=== PATIENT | female | born 2005 | race Caucasian/White ===

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

== ENCOUNTER → 2024-03-10 15:56 | Outpatient (BNVA) | payer MEDICAID, SELFPAY | PROVIDERS: PCP Nurse Practitioner; Visit Provider Nurse Practitioner Women's Health | DX: R00.2 Palpitations (principal) | CPT/HCPCS: 83036; 84439; 84443; 85025 ==

== ENCOUNTER 2025-06-24 16:57 | Emergency (ER) | payer MEDICAID, SELFPAY ==
[2025-06-24 17:18] VITALS: BP 155/91; PULSE 115; RESP 18; TEMP 37; O2SAT 100; BMI 18.5
--- NOTE | 2025-06-24 17:32 | ED_ITS ---
Documented by User: Nghia Matt DO 06/28/25 07:13 HPI - 2 General: Chief complaint: Vaginal Bleeding Stated complaint: 6 wk preg-spotting, cramping Time Seen by Provider: 06/24/25 17:13 History of Present Illness: 19-year-old G3, P1 SAB 1 female presents emergency room at 6 weeks gestation based off a LMP of 05/10/2025. She has had some spotting when she wipes after urinating today. She also reports having been somewhat constipated. She denies any discharge frequency no fevers or chills or flank pain. Some mild pelvic cramping Associated symptoms: Deny abdominal pain or dysuria Related Data Home Medications ?Medication ?Instructions ?Recorded ?Confirmed etonogestrel 68 mg subdermal subdermal 03/08/23 implant (Nexplanon) cholecalciferol (vitamin D3) 50 05/11/23 07/29/24 mcg (2,000 unit) capsule Previous Rx's ?Medication ?Instructions ?Recorded ibuprofen 800 mg tablet 800 mg PO TID PRN pain #60 t abs 01/26/23 azithromycin 500 mg tablet 500 mg PO DAILY 5 days #3 t abs 10/23/24 Allergies Allergy/AdvReac Type Severity Reaction Status Date / Time Sulfa (Sulfonamide Allergy Unknown Verified 07/29/24 13:38 Antibiotics) Review of Systems 2 Const: Denies: fever(s) or chills Card: Denies: chest pain Resp: Denies: dyspnea GI: Denies: abdominal pain : Reports: vaginal bleeding (Light spotting); Denies: dysuria, urinary frequency or urinary urgency Musc: Denies: neck pain or back pain Skin/Breast: Denies: rash PFSH ED 2 PFSH: Medical History No pertinent past medical history neghx: htn,dm,thyroid,dvt/pe PCP: Alessandra Frankel Labia minora hypertrophy Ineffective individual coping Surgical History No pertinent past surgical history Family History Mother Scoliosis Other Asthma Denies family history of Colon cancer Ovarian cancer Diabetes Heart disease Hyperlipidemia Breast cancer Family history of thyroid problem Hypertension Uterine cancer Stroke Social History Smoking and tobacco/nicotine status: current every day tobacco/nicotine user Physical Exam 2 Const: GENERAL APPEARANCE: cooperative ORIENTATION/CONSCIOUSNESS: Yes awake, Yes oriented to person, Yes oriented to place and Yes oriented to time HENMT: COMMON NORMALS: normocephalic, atraumatic and hearing grossly normal bilaterally HEAD & SCALP: normocephalic and atraumatic Resp: COMMON NORMALS: normal respiratory effort, No retractions, No use of accessory muscles and clear to auscultation bilaterally AUSCULTATION: clear to auscultation bilaterally Cardio: COMMON NORMALS: regular rate, regular rhythm and No murmurs present (Cardio) RATE: regular rate RHYTHM: regular rhythm GI: COMMON NORMALS: Soft to palpation and No hepatosplenomegaly present A USCULTATION: Yes normoactive bowel sounds PALPATION: Yes Soft to palpation, No Tenderness to palpation present (GI), No Guarding due to palpation present (GI) and Yes No hepatosplenomegaly present Extremity: COMMON NORMALS: normal to inspection, capillary refill normal, no clubbing, cyanosis or edema, no calf tenderness and no pedal edema Neuro: SENSORIUM/ORIENTATION: Yes oriented to person, Yes oriented to place and Yes oriented to time Skin: COMMON NORMALS: no rashes or lesions noted GENERAL SKIN EXAM: no rashes or lesions noted Course 2 Vital Signs: Vital signs: Vital Signs Temperature 98.6 F 06/24/25 17:18 Pulse Rate 104 H 06/24/25 18:00 Respiratory Rate 16 06/24/25 18:00 Blood Pressure 118/88 06/24/25 18:00 Pulse Oximetry 100 06/24/25 18:00 Oxygen Delivery Me thod Room Air 06/24/25 18:00 MDM - OB/Uterine Contractions Medical Decision Making Care signed out to Dr. Fan at change of shift. See final notes for diagnosis and disposition. 19-year-old female G3, P1 with 1 spontaneous in the past and 1 live child presenting emergency department with vaginal bleeding and pelvic cramping at 6 weeks EGA by dates, no confirmatory ultrasound as of yet, Rh+ on blood work, plan for quant hCG, pelvic ultrasound to evaluate for IUP and early signs of ectopic , reassess for disposition. Lab Data 06/24/25 17:31 06/24/25 17:31 Radiology Impressions Ultrasound 06/24/25 18:48 IMPRESSION: Early intrauterine , pole not seen. Gestational age 5 weeks 5 days. Continued ultrasound surveillance. Laboratory Results WBC 7.56 10^3/uL (4.5-13.0) 06/24/25 17: RBC 4.87 10^6/uL (3.85-5.65) 06/24/25 17: Hgb 14.70 g/dL (12.4-14.8) 06/24/25 17: Hct 41.7 % (36-47) 06/24/25 17: MCV 85.6 fl (85-98) 06/24/25 17: MCH 30.2 pg (27-33) 06/24/25 17: MCHC 35.3 g/dL (30-55) 06/24/25 17: RDW 12.0 % (12.1-15.1) L 06/24/25 17: Plt Count 367 10^3/cmm (157-399) 06/24/25 17: MPV 9.7 fL (7.4-10.4) 06/24/25 17: Neut % (Auto) 68.0 % 06/24/25 17: Lymph % (Auto) 25.8 % 06/24/25 17: [place] % (Auto) 5.4 % 06/24/25 17: Eos % (Auto) 0.3 % 06/24/25 17: Baso % (Auto) 0.4 % 06/24/25 17: Neut # (Auto) 5.14 10^3/uL (1.8-8.0) 06/24/25 17: Lymph # (Auto) 2.0 10^3/uL (1.5-6.5) 06/24/25 17: [place] # (Auto) 0.4 10^3/uL (0.2-0.9) 06/24/25 17:31 Eos # (Auto) 0.0 10^3/uL (0.0-0.8) 06/24/25 17: Baso # (Auto) 0.0 10^3/uL (0.0-0.1) 06/24/25 17:31 Nucleated RBC % (auto) 0 % 06/24/25 17: Nucleated RBCs # 0.0 /100WBC 06/24/25 17:31 Sodium 139 mmol/L (136-145) 06/24/25 17:31 Potassium 3.4 mmol/L (3.5-5.1) L 06/24/25 17:31 Chloride 102 mmol/L (98-107) 06/24/25 17:31 Carbon Dioxide 21 mmol/L (22-29) L 06/24/25 17:31 Anion Gap 19.4 (5-19) H 06/24/25 17:31 BUN 14 mg/dL (6-20) 06/24/25 17:31 Creatinine 0.5 mg/dL (0.5-0.9) 06/24/25 17:31 GFR Calculation 157.3 mL/min (90-130) H 06/24/25 17:31 Glucose 125 mg/dL (65-115) H 06/24/25 17:31 Calculated Osmolality 290 mOsm/kg (285-295) 06/24/25 17:31 Calcium 10.0 mg/dL (8.5-10.5) 06/24/25 17:31 Total Bilirubin 1.1 mg/dL (0.15-1.2) 06/24/25 17:31 AST 22 U/L (0-32) 06/24/25 17:31 ALT 18 U/L (0-33) 06/24/25 17:31 Alkaline Phosphatase 81 U/L (35-105) 06/24/25 17:31 Total Protein 8.6 g/dL (6.6-8.7) 06/24/25 17:31 Albumin 5.3 g/dL (3.5-5.2) H 06/24/25 17:31 Globulin 3.3 g/dL (1.3-4.6) 06/24/25 17:31 Ser , Semi-Qnt 42491.00 mIU/mL 06/24/25 17:31 Urine Color Yellow (Yellow) 06/24/25 18:37 Urine Appearance Cloudy (CLEAR) A 06/24/25 18:37 Urine pH 6.5 (5-7) 06/24/25 18:37 Ur Specific [place] 1.018 (1.005-1.030) 06/24/25 18:37 Urine Protein Negative (Negative) 06/24/25 18:37 Urine Glucose (UA) Negative (Normal) 06/24/25 18:37 Urine Ketones 1+ (Negative) H 06/24/25 18:37 Urine Blood Negative (Negative) 06/24/25 18:37 Urine Nitrate Negative (Negative) 06/24/25 18:37 Urine Bilirubin Negative (Negative) 06/24/25 18:37 Urine Urobilinogen 1.0 mg/dL (Negative) 06/24/25 18:37 Ur Leukocyte Esterase Negative (Negative) 06/24/25 18:37 Urine RBC 0-2 /hpf (0-2) 06/24/25 18:37 Urine WBC 0-5 /hpf (0-5) 06/24/25 18:37 Ur Squamous Epith Cells 0-5 /hpf (0-5) 06/24/25 18:37 Amorphous Sediment Not Reportable 06/24/25 18:37 Urine Bacteria None seen /hpf (NONE) 06/24/25 18:37 Hyaline Casts 0-4 /lpf H 06/24/25 18:37 Rho(D) Type Rh positive 06/24/25 17:31 Discharge Plan Discharge Patient Disposition: Home Clinical Impression: Threatened , Vaginal bleeding in patient after first trimester, Confirmed intrauterine on ultrasound Condition: Stable Prescriptions: No Action Nexplanon 68 mg implant subdermal azithromycin 500 mg tablet 500 mg PO DAILY 5 Days Qty: 3 0RF Rx Instructions: 1 tab by mouth daily x 3 days ibuprofen 800 mg tablet 800 mg PO TID PRN (Reason: pain) Qty: 60 0RF cholecalciferol (vitamin D3) 50 mcg (2,000 unit) capsule Discharge Orders: Discharge ED (Routine); Ordered 06/24/25 Ordered By: Liban Fan Referrals: Maria Alejandra Frankel FNP-BC [Primary Care Provider, Pediatrics] Patient Instructions: Threatened Miscarriage (ED), (ED), Patient Portal & [facility] Instructions Print Language: Ivorian Coding Level of Care Code ED Digital Sales Planner for [employer] Documented by User: Liban Fan MD 06/24/25 20:13 HPI - 2 General: Chief complaint: Vaginal Bleeding Stated complaint: 6 wk preg-spotting, cramping Time Seen by Provider: 06/24/25 17:13 Related Data Home Medications ?Medication ?Instructions ?Recorded ?Confirmed etonogestrel 68 mg subdermal subdermal 03/08/23 implant (Nexplanon) cholecalciferol (vitamin D3) 50 05/11/23 07/29/24 mcg (2,000 unit) capsule Previous Rx's ?Medication ?Instructions ?Recorded ibuprofen 800 mg tablet 800 mg PO TID PRN pain #60 t abs 01/26/23 azithromycin 500 mg tablet 500 mg PO DAILY 5 days #3 t abs 10/23/24 Allergies Allergy/AdvReac Type Severity Reaction Status Date / Time Sulfa (Sulfonamide Allergy Unknown Verified 07/29/24 13:38 Antibiotics) PFSH ED 2 PFSH: Medical History No pertinent past medical history neghx: htn,dm,thyroid,dvt/pe PCP: Alessandra Frankel Labia minora hypertrophy Ineffective individual coping Surgical History No pertinent past surgical history Family History Mother Scoliosis Other Asthma Denies family history of Colon cancer Ovarian cancer Diabetes Heart disease Hyperlipidemia Breast cancer Family history of thyroid problem Hypertension Uterine cancer Stroke Social History Smoking and tobacco/nicotine status: current every day tobacco/nicotine user Course 2 Reevaluation(s): Reevaluation #1: Patient reevaluated this time, feels well, no active hemorrhage, workup showing ultrasound with positive gestational sac and yolk sac correlating to an intrauterine at approximately 5 weeks gestation, beta-hCG 11,000, no UTI, Rh+ no indication for RhoGAM, stable for discharge with diagnosis of threatened miscarriage/first trimester vaginal bleeding, follow-up with [facility] [employer] [employer] recommended, return precautions discussed Time: 20:11 Vital Signs: Vital signs: Vital Signs Temperature 98.6 F 06/24/25 17:18 Pulse Rate 104 H 06/24/25 18:00 Respiratory Rate 16 06/24/25 18:00 Blood Pressure 118/88 06/24/25 18:00 Pulse Oximetry 100 06/24/25 18:00 Oxygen Delivery Me thod Room Air 06/24/25 18:00 MDM - OB/Uterine Contractions Medical Decision Making 19-year-old female G3, P1 with 1 spontaneous in the past and 1 live child presenting emergency department with vaginal bleeding and pelvic cramping at 6 weeks EGA by dates, no confirmatory ultrasound as of yet, Rh+ on blood work, plan for quant hCG, pelvic ultrasound to evaluate for IUP and early signs of ectopic , reassess for disposition. Lab Data Labs showing no leukocytosis or anemia, beta-hCG 11,000, urinalysis negative for UTI 06/24/25 17:31 06/24/25 17:31 Radiology Impressions Ultrasound 06/24/25 18:48 IMPRESSION: Early intrauterine , pole not seen. Gestational age 5 weeks 5 days. Continued ultrasound surveillance. Laboratory Results WBC 7.56 10^3/uL (4.5-13.0) 06/24/25 17: RBC 4.87 10^6/uL (3.85-5.65) 06/24/25 17:31 Hgb 14.70 g/dL (12.4-14.8) 06/24/25 17: Hct 41.7 % (36-47) 06/24/25 17: MCV 85.6 fl (85-98) 06/24/25 17:31 MCH 30.2 pg (27-33) 06/24/25 17: MCHC 35.3 g/dL (30-55) 06/24/25 17: RDW 12.0 % (12.1-15.1) L 06/24/25 17: Plt Count 367 10^3/cmm (157-399) 06/24/25 17: MPV 9.7 fL (7.4-10.4) 06/24/25 17: Neut % (Auto) 68.0 % 06/24/25 17:31 Lymph % (Auto) 25.8 % 06/24/25 17:31 [place] % (Auto) 5.4 % 06/24/25 17:31 Eos % (Auto) 0.3 % 06/24/25 17:31 Baso % (Auto) 0.4 % 06/24/25 17:31 Neut # (Auto) 5.14 10^3/uL (1.8-8.0) 06/24/25 17: Lymph # (Auto) 2.0 10^3/uL (1.5-6.5) 06/24/25 17:31 [place] # (Auto) 0.4 10^3/uL (0.2-0.9) 06/24/25 17: Eos # (Auto) 0.0 10^3/uL (0.0-0.8) 06/24/25 17: Baso # (Auto) 0.0 10^3/uL (0.0-0.1) 06/24/25 17: Nucleated RBC % (auto) 0 % 06/24/25 17: Nucleated RBCs # 0.0 /100WBC 06/24/25 17:31 Sodium 139 mmol/L (136-145) 06/24/25 17:31 Potassium 3.4 mmol/L (3.5-5.1) L 06/24/25 17:31 Chloride 102 mmol/L (98-107) 06/24/25 17: Carbon Dioxide 21 mmol/L (22-29) L 06/24/25 17:31 Anion Gap 19.4 (5-19) H 06/24/25 17:31 BUN 14 mg/dL (6-20) 06/24/25 17:31 Creatinine 0.5 mg/dL (0.5-0.9) 06/24/25 17:31 GFR Calculation 157.3 mL/min (90-130) H 06/24/25 17:31 Glucose 125 mg/dL (65-115) H 06/24/25 17:31 Calculated Osmolality 290 mOsm/kg (285-295) 06/24/25 17:31 Calcium 10.0 mg/dL (8.5-10.5) 06/24/25 17:31 Total Bilirubin 1.1 mg/dL (0.15-1.2) 06/24/25 17: AST 22 U/L (0-32) 06/24/25 17: ALT 18 U/L (0-33) 06/24/25 17:31 Alkaline Phosphatase 81 U/L (35-105) 06/24/25 17:31 Total Protein 8.6 g/dL (6.6-8.7) 06/24/25 17: Albumin 5.3 g/dL (3.5-5.2) H 06/24/25 17: Globulin 3.3 g/dL (1.3-4.6) 06/24/25 17:31 Ser , Semi-Qnt 96903.00 mIU/mL 06/24/25 17:31 Urine Color Yellow (Yellow) 06/24/25 18:37 Urine Appearance Cloudy (CLEAR) A 06/24/25 18:37 Urine pH 6.5 (5-7) 06/24/25 18:37 Ur Specific [place] 1.018 (1.005-1.030) 06/24/25 18:37 Urine Protein Negative (Negative) 06/24/25 18:37 Urine Glucose (UA) Negative (Normal) 06/24/25 18:37 Urine Ketones 1+ (Negative) H 06/24/25 18:37 Urine Blood Negative (Negative) 06/24/25 18:37 Urine Nitrate Negative (Negative) 06/24/25 18:37 Urine Bilirubin Negative (Negative) 06/24/25 18:37 Urine Urobilinogen 1.0 mg/dL (Negative) 06/24/25 18:37 Ur Leukocyte Esterase Negative (Negative) 06/24/25 18:37 Urine RBC 0-2 /hpf (0-2) 06/24/25 18:37 Urine WBC 0-5 /hpf (0-5) 06/24/25 18:37 Ur Squamous Epith Cells 0-5 /hpf (0-5) 06/24/25 18:37 Amorphous Sediment Not Reportable 06/24/25 18:37 Urine Bacteria None seen /hpf (NONE) 06/24/25 18:37 Hyaline Casts 0-4 /lpf H 06/24/25 18:37 Rho(D) Type Rh positive 06/24/25 17:31 All radiology interpretation(s) finalized by discharge ED provider radiology interpretation(s): Pelvic ultrasound showing gestational sac and yolk sac correlating to an intrauterine , no significant adnexal abnormalities or significant free fluid in the pelvis Discharge Plan Discharge Patient Disposition: Home Clinical Impression: Threatened , Vaginal bleeding in patient after first trimester, Confirmed intrauterine on ultrasound Condition: Stable Prescriptions: No Action Nexplanon 68 mg implant subdermal azithromycin 500 mg tablet 500 mg PO DAILY 5 Days Qty: 3 0RF Rx Instructions: 1 tab by mouth daily x 3 days ibuprofen 800 mg tablet 800 mg PO TID PRN (Reason: pain) Qty: 60 0RF cholecalciferol (vitamin D3) 50 mcg (2,000 unit) capsule Discharge Orders: Discharge ED (Routine); Ordered 06/24/25 Ordered By: Liban Fan Referrals: Maria Alejandra Frankel FNP-BC [Primary Care Provider, Pediatrics] Patient Instructions: Threatened Miscarriage (ED), (ED), Patient Portal & [facility] Instructions Print Language: Ivorian Coding Level of Care Code ED Digital Sales Planner for Ludwig Alves
[2025-06-24 18:00] VITALS: BP 118/88; PULSE 104; RESP 16; O2SAT 100
[2025-06-24 18:10] LABS: Hematocrit 41.7 % (36-47); Hemoglobin 14.70 g/dL (12.4-14.8); Mean Corpuscular HGB Conc 35.3 g/dL (30-55); Mean Corpuscular Hemoglobin 30.2 pg (27-33); Mean Corpuscular Volume 85.6 fl (85-98); Nucleated Red Blood Cells % 0 %; Platelet Count 367 10^3/cmm (157-399); Red Blood Count 4.87 10^6/uL (3.85-5.65); White Blood Count 7.56 10^3/uL (4.5-13.0)
[2025-06-24 18:43] LABS: Glucose Urine UA Negative (Normal); Nitrate Urine Negative (Negative); Specific Gravity, Urine 1.018 (1.005-1.030)
[2025-06-24 18:48] LABS: Add Urine Microscopic? YES
--- NOTE | 2025-06-24 18:48 | USR_ITS ---
PROCEDURE INFORMATION: Exam: US First Trimester, Transabdominal and US , Transvaginal Exam date and time: 06/24/2025 7:00 PM Age: 19 years old Clinical indication: Lmp or gestational age (in weeks): 6w 3d by lmp, 5w 5d by mean gsd; Antepartum complications; ; G3-p1-a1-l1 presenting with light vaginal bleeding today. ; Additional info: First trimester vaginal bleeding, 6 weeks by lmp LABS AND CLINICAL REPORTS: Last menstrual period start date: 05/10/2025 Gestational age (Established): 6 w 3 d Estimated due date (Established): 02/14/2026 TECHNIQUE: Imaging protocol: Real-time transabdominal obstetrical ultrasound of the maternal pelvis and a first trimester , less than 14 weeks 0 days, with image documentation. Transvaginal imaging was used for better evaluation of the fetus, adnexa, and/or cervix. COMPARISON: US OB limited [id number] 01/11/2023 4:54 PM FINDINGS: GESTATION: Gestation: Intrauterine gestation is visualized. No pole is visualized. Yolk sac is visualized. Embryo/ cardiac activity (BPM): Too early. Extra-embryonic membranes/Placenta: Unremarkable. No subchorionic bleed. Amniotic/Chorionic fluid: Amniotic and extra-amniotic fluid are normal for gestational age. BIOMETRY: Gestational age (AUA): 5 w 5 d Estimated due date (AUA): 02/19/2026 Mean sac diameter: 0.97 cm. EGA (MSD) is 5 w 5 d MATERNAL: Uterus: Uterus measures 6.95 cm x 5.55 cm x 4.46 cm. Cervix: Unremarkable. Endocervical canal is closed. Right ovary/adnexa: Right ovary measures 3.8 cm x 3.2 cm x 1.8 cm. Right ovarian volume is 11.1 mL. Corpus luteum. Left ovary/adnexa: Left ovary measures 3.3 cm x 1.4 cm x 2 cm. Left ovarian volume is 4.8 mL. Intraperitoneal space: No intraperitoneal free fluid. US/US OB <= 14 weeks fetus [id number] IMPRESSION: Early intrauterine , pole not seen. Gestational age 5 weeks 5 days. Continued ultrasound surveillance.
[2025-06-24 19:30] LABS: Alanine Aminotransferase 18 U/L (0-33); Albumin Level 5.3 g/dL (3.5-5.2); Alkaline Phosphatase 81 U/L (35-105); Anion Gap 19.4 (5-19); Aspartate Amino Transferase 22 U/L (0-32); Blood Urea Nitrogen 14 mg/dL (6-20); Calcium 10.0 mg/dL (8.5-10.5); Carbon Dioxide 21 mmol/L (22-29); Chloride 102 mmol/L (98-107); Globulin 3.3 g/dL (1.3-4.6); Glucose 125 mg/dL (65-115); Osmolality Calculated 290 mOsm/kg (285-295); Potassium 3.4 mmol/L (3.5-5.1); Sodium 139 mmol/L (136-145); Total Protein 8.6 g/dL (6.6-8.7)
== END 2025-06-24 20:29 | disposition home or self-care (01) ==
PROVIDERS: Family Medicine; Emergency Provider Student in an Organized Health Care Education/Training Program; PCP Nurse Practitioner
DX: O20.0 Threatened abortion (principal); Z3A.01 Less than 8 weeks gestation of pregnancy; O20.9 Hemorrhage in early pregnancy, unspecified
CPT/HCPCS: 36415; 76801; 80053; 81001; 84702; 85025; 99284